=== PATIENT | female | born 1990 | race Hispanic/Latino ===

== ENCOUNTER → 2024-01-29 | Outpatient (CLI) | payer OTHER | LOC: M PLAIMG 06:38 | PROVIDERS: ATTEND Pain Medicine Interventional Pain Medicine | DX: M47.817 Spondylosis without myelopathy or radiculopathy, lumbosacral region (principal); M47.816 Spondylosis without myelopathy or radiculopathy, lumbar region ==

== ENCOUNTER 2024-07-01 19:58 | Emergency (ER) | payer OTHER ==
[~2024-07-01] VITALS: Ht 154.9 cm; Wt 74.2 kg
[2024-07-01] MEDS ORDERED: AMOX875T2 PO (21:59)
[2024-07-01] MEDS ORDERED: IBUP-1022 PO (21:59)
[2024-07-01] MEDS: IBUPROFEN 600MG TAB PO ONE (22:00)
[2024-07-01] MEDS: AUGMENTIN 875 MG TAB PO ONE (22:00)
[2024-07-01 22:08] VITALS: BP 116/72; TEMP 98.5; O2SAT 95
== END 2024-07-01 22:17 | disposition home or self-care (01) ==
LOC: M ED 19:58
DX: S51.832A Puncture wound without foreign body of left forearm, initial encounter (principal); W54.0XXA Bitten by dog, initial encounter; Y92.009 Unspecified place in unspecified non-institutional (private) residence as the place of occurrence of the external cause; Y93.9 Activity, unspecified; Y99.9 Unspecified external cause status